=== PATIENT | male | born 1995 | race Caucasian/White ===

== ENCOUNTER 2021-10-26 09:17 | Emergency (ER) | payer OTHER ==
[~2021-10-26] VITALS: Ht 177.8 cm; Wt 109.5 kg
[2021-10-26] MEDS ORDERED: IBUPROFEN 600 MG TABLET PO ONE (09:45)
[2021-10-26] MEDS ORDERED: PERTUSS(ACELL),DIPH,TET VAC/PF 0.5 ML SYRINGE IM. ONE (09:45)
[2021-10-26 11:12] VITALS: BP 143/100
[2021-10-26] MEDS ORDERED: AMOX1TAB16 PO (11:31)
== END 2021-10-26 11:42 | disposition home or self-care (01) ==
LOC: EMS 09:17
DX: S61.511A Laceration without foreign body of right wrist, initial encounter (principal); S61.411A Laceration without foreign body of right hand, initial encounter; R03.0 Elevated blood-pressure reading, without diagnosis of hypertension; W54.0XXA Bitten by dog, initial encounter; Y93.89 Activity, other specified; Y92.89 Other specified places as the place of occurrence of the external cause; Y99.8 Other external cause status
CPT/HCPCS: 12002; 90471; 90715; 99283